=== PATIENT | male | born 1995 | race Caucasian/White ===

== ENCOUNTER 2018-04-08 08:19 | Emergency (ER) | payer SELFPAY ==
--- NOTE | 2018-04-08 08:35 | PDOC ---
History of Present Illness - General Chief Complaint: Sore Throat Stated Complaint: SORE THROAT Time Seen by Provider: 04/08/18 08:35 History Source: Patient Exam Limitations: No Limitations - History of Present Illness Initial Comments: 22 yo M no significant PMH presents with sore throat for the past few days. He states that he has been having pressure in the R ear associated with the pain. No cough. Denies nasal congestion. He has been taking levofloxacin that a friend gave to him without relief. Past History - Past Medical History Allergies/Adverse Reactions: Allergies Allergy/AdvReac Type Severity Reaction Status Date / Time No Known Allergies Allergy Verified 04/08/18 08:21 Home Medications: Ambulatory Orders Acetaminophen [Tylenol] 325 mg PO ASDIR 04/08/18 Amox-Tr/K Cl [Augmentin - 875Mg Tablet] 1 tab PO BID #14 tablet 04/08/18 Ibuprofen 200 mg PO ASDIR 04/08/18 COPD: No - Suicide/Smoking/Psychosocial Hx Smoking History: Never smoked Have you smoked in the past 12 months: No Information on smoking cessation initiated: No Hx Alcohol Use: No Drug/Substance Use Hx: No Review of Systems - Review of Systems Able to Perform ROS?: Yes Comments:: GENERAL/CONSTITUTIONAL: No fever or chills. No weakness. HEAD, EYES, EARS, NOSE AND THROAT: No change in vision. +R ear pain. +Sore throat. CARDIOVASCULAR: No chest pain or shortness of breath. RESPIRATORY: No cough, wheezing, or hemoptysis. GASTROINTESTINAL: No nausea, vomiting, diarrhea or constipation. GENITOURINARY: No dysuria, frequency, or change in urination. MUSCULOSKELETAL: No joint or muscle swelling or pain. No neck or back pain. SKIN: No rash NEUROLOGIC: No headache, vertigo, loss of consciousness, or change in strength/ sensation. ENDOCRINE: No increased thirst. No abnormal weight change. HEMATOLOGIC/LYMPHATIC: No anemia, easy bleeding, or history of blood clots. ALLERGIC/IMMUNOLOGIC: No hives or skin allergy. *Physical Exam - Vital Signs Last Vital Signs Temp Pulse Resp BP Pulse Ox 99.9 F H 98 H 18 127/69 99 04/08/18 08:19 04/08/18 08:19 04/08/18 08:19 04/08/18 08:19 04/08/18 08:19 - Physical Exam Comments: GENERAL: Awake, alert, and fully oriented, in no acute distress HEAD: No signs of trauma EYES: PERRLA, EOMI, sclera anicteric, conjunctiva clear ENT: Auricles normal inspection, hearing grossly normal, nares patent, oropharynx erythematous with exudates on R. Uvula midline. Moist mucosa NECK: Normal ROM, supple. +Anterior cervical LAD B/L. No JVD or masses LUNGS: Breath sounds equal, clear to auscultation bilaterally. No wheezes, and no crackles HEART: Regular rate and rhythm, normal S1 and S2, no murmurs, rubs or gallops ABDOMEN: Soft, nontender, normoactive bowel sounds. No guarding, no rebound. No masses EXTREMITIES: Normal range of motion, no edema. No clubbing or cyanosis. No cords, erythema, or tenderness NEUROLOGICAL: Cranial nerves II through XII grossly intact. Normal speech, normal gait SKIN: Warm, Dry, normal turgor, no rashes or lesions noted. Moderate Sedation - Procedure Monitoring Vital Signs: Procedure Monitoring Vital Signs Temperature 99.9 F H 04/08/18 08:19 Pulse Rate 98 H 04/08/18 08:19 Respiratory Rate 18 04/08/18 08:19 Blood Pressure 127/69 04/08/18 08:19 O2 Sat by Pulse Oximetry (%) 99 04/08/18 08:19 Medical Decision Making - Medical Decision Making Will give decadron for the swelling and irritation. Will give augmentin as it is a more appropriate antibiotic. *DC/Admit/Observation/Transfer Diagnosis at time of Disposition: Tonsillitis - Discharge Dispostion Disposition: HOME Condition at time of disposition: Stable Decision to Admit order: No - Prescriptions Prescriptions: Amox-Tr/K Cl [Augmentin - 875Mg Tablet] 1 tab PO BID #14 tablet - Referrals - Patient Instructions Printed Discharge Instructions: DI for Pharyngitis/Tonsillopharyngitis -- Adult Print Language: [place] - Post Discharge Activity
[2018-04-08] MEDS ORDERED: DEXAMETHASONE SOD PHOSPHATE 10 MG/1 ML VIAL IVPUSH ONE (08:40)
[2018-04-08] MEDS ORDERED: AMOX TR/POT CLAV 875MG/125MG TABLETS (FP) PO ONE (08:42)
[2018-04-08] MEDS ORDERED: DEXAMETHASONE SOD PHOSPHATE 10 MG/1 ML VIAL ONE (08:43)
[2018-04-08 08:44] VITALS: BP 127/69; PULSE 98; TEMP 99.9; BMI 22.4
[2018-04-08] MEDS ORDERED: AMOX TR/POT CLAV 875MG/125MG TABLETS (FP) ONE (08:45)
== END 2018-04-08 09:50 | disposition home or self-care (01) ==
LOC: FER 08:19
PROC: 3E033GC Introduction of Other Therapeutic Substance into Peripheral Vein, Percutaneous Approach (ICD-10-PCS; principal; 2018-04-08)
DX: J03.90 Acute tonsillitis, unspecified (principal)
CPT/HCPCS: 87070; 87880; 99282-25; J1100